=== PATIENT | male | born 1980 | race Caucasian/White ===

== ENCOUNTER → 2017-11-04 | Outpatient (CLI) | payer OTHER, SELFPAY ==
--- NOTE | 2017-11-04 17:15 | Diagnostic Imaging Report ---
PROCEDURE:TESTICULAR DOPPLER ULTRASOUND COMPARISON:None. INDICATIONS:RT. TESTICULAR PAIN TECHNIQUE:The scrotum was evaluated with gloria scale and color duplex Doppler sonography. FINDINGS: TESTES:Right: 4.7 x 2.7 x 3.3 cm. Left: 4.9 x 2.8 x 3.2 cm. Normal appearance and flow. Symmetric Color Doppler signal. Normal spectral Doppler waveforms. No masses. EPIDIDYMIS:Right epididymal head measures 1.1 x 0.7 x 0.7 cm . Left epididymal head measures 1.4 x 0.9 x 0.9 cm. Right epididymal head 0.5 x 0.5 x 0.5 cm and left epididymal head 0.5 x 0.3 x 0.5 cm cysts or spermatoceles. No masses. OTHER:No hydroceles, varicoceles, or inguinal hernias identified. CONCLUSION: No ultrasound findings to explain right testicular pain. Tiny epididymal head cysts or spermatoceles. Dictated by: Nimesh Gomez M.D. on 11/04/2017 at 17:16 Electronically approved by: Nimesh Gomez M.D. on 11/04/2017 at 17:16
--- NOTE | 2017-11-04 17:16 | Diagnostic Imaging Report ---
PROCEDURE:TESTICULAR ULTRASOUND COMPARISON:None. INDICATIONS:RT. TESTICULAR PAIN TECHNIQUE:The scrotum was evaluated with gloria scale and color duplex Doppler sonography. FINDINGS: Please see same day testicular ultrasound for full report. CONCLUSION: Please see same day testicular ultrasound for full report. Dictated by: Nimesh Gomez M.D. on 11/04/2017 at 17:17 Electronically approved by: Nimesh Gomez M.D. on 11/04/2017 at 17:17
== END ==
LOC: US 15:23
PROVIDERS: ATTEND Family Medicine
DX: N50.811 Right testicular pain (principal)
CPT/HCPCS: 76870; 93976

== ENCOUNTER 2021-10-16 14:29 | Inpatient (IN) | payer OTHER ==
[~2021-10-16] VITALS: Ht 180.3 cm; Wt 131.5 kg
[2021-10-16 15:12] LABS: BASOPHILS % 0.3 % (0.0-1.0); EOSINOPHILS % 0.1 % (0.0-6.0); HEMATOCRIT 48.7 % (38.2-49.6); HEMOGLOBIN 16.5 g/dL (14.0-18.0); LYMPHOCYTES # (AUTO) 1.6 (1.0-3.2); LYMPHOCYTES % 10.7 % (18.0-39.1); MEAN CORPUSCULAR HEMOGLOBIN 29.7 pg (28-32); MEAN CORPUSCULAR HGB CONC 33.9 g/dL (31-35); MEAN CORPUSCULAR VOLUME 87.6 fL (81-99); MONOCYTES # (AUTO) 1.1 (0.2-0.8); MONOCYTES % 7.4 % (4.4-11.3); NEUTROPHILS # (AUTO) 11.7 (2.1-6.9); PLATELET COUNT 205 x10e3/uL (140-360); RED BLOOD COUNT 5.56 x10e6/uL (4.3-5.7); RED CELL DISTRIBUTION WIDTH 13.1 % (11.7-14.4)
[2021-10-16 15:26] LABS: ALBUMIN 4.1 g/dL (3.5-5.0); ALBUMIN/GLOBULIN RATIO 1.2 (0.8-2.0); CREATININE, SERUM 1.23 mg/dL (0.72-1.25)
[2021-10-16] MEDS: ONDANSETRON HCL INJ 2MG/ML 2ML 2 MG/ML VIAL IV PRN (15:57)
[2021-10-16] MEDS: Morphine 4mg Syringe 4 MG/ML INJ IV PRN (15:57)
[2021-10-16 16:16] LABS: CLARITY,URINE SL CLOUDY (CLEAR); COLOR,URINE AMBER (YELLOW); KETONES,URINE NEGATIVE (NEGATIVE); LEUKOCYTE ESTERASE ,URINE NEGATIVE (NEGATIVE); NITRITE,URINE NEGATIVE (NEGATIVE); PROTEIN,URINE DIPSTICK NEGATIVE (NEGATIVE); URINE UROBILINOGEN 0.2 mg/dL (0.2 - 1)
[2021-10-16 16:22] LABS: BACTERIA,URINE RARE /HPF; EPITHELIAL CELLS,URINE FEW /LPF; MUCUS,URINE FEW (RARE)
[2021-10-16] MEDS ORDERED: ACETAMINOPHEN 325 MG TAB PO ONE (17:15)
[2021-10-16] MEDS ORDERED: FENTANYL CITRATE/PF 100MCG/2 ML INJ IV ONE (17:15)
[2021-10-16] MEDS ORDERED: SODIUM CHLORIDE 0.9% 1000ML 1,000 ML IV ONE (17:15)
[2021-10-16] MEDS ORDERED: ONDANSETRON HCL INJ 2MG/ML 2ML 2 MG/ML VIAL IV PRN (18:00)
[2021-10-16] MEDS ORDERED: Morphine 4mg Syringe 4 MG/ML INJ IV PRN (18:00)
[2021-10-16] MEDS: SODIUM CHLORIDE 0.9% 1000ML 1,000 ML IV SCH (18:00)
[2021-10-16] MEDS: Vancomycin IV 1 GM in SODIUM CHLORIDE 0.9% 250ML 250 ML IV SCH (18:15)
[2021-10-16 20:00] VITALS: BP 115/81
[2021-10-16 21:34] VITALS: BP 115/81
[2021-10-16 21:41] VITALS: BP 115/81
[2021-10-16] MEDS ORDERED: BUPROPION XL150 MG PO (21:51)
[2021-10-16] MEDS ORDERED: WELLBUTRIN XL150 MG PO (21:52)
[2021-10-16] MEDS ORDERED: ADDERALL 10 MG10 MG PO (21:54)
[2021-10-16] MEDS: HYDROCODONE/APAP 5MG-325MG TAB PO PRN (22:03)
[2021-10-17] VITALS (7 sets, daily range): BP systolic 102–135; BP diastolic 58–77
[2021-10-17] MEDS: ONDANSETRON HCL INJ 2MG/ML 2ML 2 MG/ML VIAL IV PRN ×4 (00:36→17:40)
[2021-10-17] MEDS: Morphine 4mg Syringe 4 MG/ML INJ IV PRN ×5 (00:36→17:40)
[2021-10-17] MEDS: SODIUM CHLORIDE 0.9% 1000ML 1,000 ML IV SCH ×4 (01:26→16:58)
[2021-10-17] MEDS: Vancomycin IV 1 GM in SODIUM CHLORIDE 0.9% 250ML 250 ML IV SCH ×2 (05:27→16:57)
[2021-10-17 06:12] LABS: BASOPHILS # (AUTO) 0.1 (0.0-0.1); BASOPHILS % 0.3 % (0.0-1.0); EOSINOPHILS % 0.1 % (0.0-6.0); HEMATOCRIT 44.9 % (38.2-49.6); HEMOGLOBIN 15.3 g/dL (14.0-18.0); LYMPHOCYTES # (AUTO) 1.7 (1.0-3.2); MEAN CORPUSCULAR HEMOGLOBIN 29.7 pg (28-32); MEAN CORPUSCULAR HGB CONC 34.1 g/dL (31-35); MEAN CORPUSCULAR VOLUME 87.2 fL (81-99); MONOCYTES # (AUTO) 1.6 (0.2-0.8); MONOCYTES % 10.6 % (4.4-11.3); NEUTROPHILS # (AUTO) 11.5 (2.1-6.9); NEUTROPHILS % 77.2 % (38.7-80.0); PLATELET COUNT 180 x10e3/uL (140-360); RED BLOOD COUNT 5.15 x10e6/uL (4.3-5.7)
[2021-10-17 06:33] LABS: ANION GAP 11.6 mmol/L (8-16); CALCIUM 7.9 mg/dL (8.4-10.2); CREATININE, SERUM 0.99 mg/dL (0.72-1.25); POTASSIUM 3.6 mmol/L (3.5-5.1)
[2021-10-17] MEDS: HYDROCODONE/APAP 5MG-325MG TAB PO PRN (08:58)
[2021-10-17] MEDS: FLUCONAZOLE 400MG/200ML BAG 200 ML IV SCH (13:47)
[2021-10-17] MEDS: BETAMETHASONE/CLOTRIMAZOLE CR 15 GM TUBE TOP SCH (16:57)
[2021-10-17] MEDS: D AMPHETAMINE PO SCH (16:57)
[2021-10-17] MEDS: HYDROMORPHONE 2MG/ML 2 MG/ML ML IV PRN (22:00)
[2021-10-18] VITALS (8 sets, daily range): BP systolic 103–126; BP diastolic 48–81
[2021-10-18] MEDS ORDERED: ACETAMINOPHEN 325 MG TAB PO PRN
[2021-10-18] MEDS: HYDROMORPHONE 2MG/ML 2 MG/ML ML IV PRN ×4 (01:54→21:19)
[2021-10-18] MEDS: SODIUM CHLORIDE 0.9% 1000ML 1,000 ML IV SCH ×3 (02:00→19:53)
[2021-10-18] MEDS: CEFTRIAXONE 2 GM in SODIUM CHLORIDE 0.9% 100 ML IV SCH (09:11)
[2021-10-18] MEDS: BUPROPION HCL 150 MG TABCR PO SCH (09:11)
[2021-10-18] MEDS: D AMPHETAMINE PO SCH ×2 (09:11→17:07)
[2021-10-18] MEDS: Morphine 4mg Syringe 4 MG/ML INJ IV PRN (09:12)
[2021-10-18] MEDS: ONDANSETRON HCL INJ 2MG/ML 2ML 2 MG/ML VIAL IV PRN ×4 (09:12→21:19)
[2021-10-18] MEDS: BETAMETHASONE/CLOTRIMAZOLE CR 15 GM TUBE TOP SCH ×2 (10:17→17:07)
[2021-10-18] MEDS: FLUCONAZOLE 400MG/200ML BAG 200 ML IV SCH (12:30)
[2021-10-18] MEDS: Vancomycin IV 1.5 GM in SODIUM CHLORIDE 0.9% 250ML 300 ML IV SCH (13:27)
[2021-10-19] VITALS (8 sets, daily range): BP systolic 115–135; BP diastolic 66–86
[2021-10-19] MEDS: HYDROMORPHONE 2MG/ML 2 MG/ML ML IV PRN ×3 (04:24→21:25)
[2021-10-19] MEDS: ONDANSETRON HCL INJ 2MG/ML 2ML 2 MG/ML VIAL IV PRN ×3 (04:25→21:25)
[2021-10-19] MEDS: SODIUM CHLORIDE 0.9% 1000ML 1,000 ML IV SCH ×3 (05:54→17:54)
[2021-10-19] MEDS: BUPROPION HCL 150 MG TABCR PO SCH (08:45)
[2021-10-19] MEDS: CEFTRIAXONE 2 GM in SODIUM CHLORIDE 0.9% 100 ML IV SCH (08:45)
[2021-10-19] MEDS: BETAMETHASONE/CLOTRIMAZOLE CR 15 GM TUBE TOP SCH ×2 (08:46→16:22)
[2021-10-19] MEDS: D AMPHETAMINE PO SCH ×2 (08:49→16:22)
[2021-10-19] MEDS: Vancomycin IV 1.5 GM in SODIUM CHLORIDE 0.9% 250ML 300 ML IV SCH ×3 (12:26)
[2021-10-19] MEDS: FLUCONAZOLE 400MG/200ML BAG 200 ML IV SCH (13:06)
[2021-10-20 00:13] VITALS: BP 128/83
[2021-10-20] MEDS: Vancomycin IV 1.5 GM in SODIUM CHLORIDE 0.9% 250ML 300 ML IV SCH (00:45)
[2021-10-20] MEDS: ONDANSETRON HCL INJ 2MG/ML 2ML 2 MG/ML VIAL IV PRN (02:05)
[2021-10-20] MEDS: HYDROMORPHONE 2MG/ML 2 MG/ML ML IV PRN (02:05)
[2021-10-20] MEDS: SODIUM CHLORIDE 0.9% 1000ML 1,000 ML IV SCH ×2 (04:30→09:22)
[2021-10-20 04:59] LABS: BASOPHILS % 0.3 % (0.0-1.0); EOSINOPHILS % 0.6 % (0.0-6.0); HEMATOCRIT 42.4 % (38.2-49.6); HEMOGLOBIN 14.2 g/dL (14.0-18.0); LYMPHOCYTES # (AUTO) 1.7 (1.0-3.2); LYMPHOCYTES % 23.1 % (18.0-39.1); MEAN CORPUSCULAR HEMOGLOBIN 29.6 pg (28-32); MEAN CORPUSCULAR HGB CONC 33.5 g/dL (31-35); MEAN CORPUSCULAR VOLUME 88.3 fL (81-99); MONOCYTES # (AUTO) 0.5 (0.2-0.8); MONOCYTES % 7.3 % (4.4-11.3); NEUTROPHILS # (AUTO) 4.9 (2.1-6.9); NEUTROPHILS % 68.4 % (38.7-80.0); PLATELET COUNT 211 x10e3/uL (140-360); RED CELL DISTRIBUTION WIDTH 12.7 % (11.7-14.4)
[2021-10-20 05:24] VITALS: BP 113/82
[2021-10-20 05:29] LABS: ANION GAP 12.1 mmol/L (8-16); CALCIUM 8.1 mg/dL (8.4-10.2); CREATININE, SERUM 0.76 mg/dL (0.72-1.25); POTASSIUM 4.1 mmol/L (3.5-5.1)
[2021-10-20 07:24] VITALS: BP 113/78
[2021-10-20 08:03] VITALS: BP 113/78
[2021-10-20] MEDS: CEFTRIAXONE 2 GM in SODIUM CHLORIDE 0.9% 100 ML IV SCH (09:21)
[2021-10-20] MEDS: BUPROPION HCL 150 MG TABCR PO SCH (09:22)
[2021-10-20] MEDS: D AMPHETAMINE PO SCH (09:22)
[2021-10-20] MEDS: BETAMETHASONE/CLOTRIMAZOLE CR 15 GM TUBE TOP SCH (09:22)
[2021-10-20 11:27] VITALS: BP 130/85
[2021-10-20] MEDS ORDERED: CIPRO500 MG PO (11:42)
[2021-10-20] MEDS ORDERED: DOXYCYCLINE MO100 M1 PO (11:46)
[2021-10-20] MEDS ORDERED: LOTRISONE (11:47)
[2021-10-20] MEDS ORDERED: DIFLUCAN200 MG PO (11:48)
[2021-10-20] MEDS ORDERED: FLUCONAZOLE 100 MG TAB PO SCH (13:00)
== END 2021-10-20 13:04 | disposition home or self-care (01) | DRG 872 ==
LOC: ER 14:41 → ERHOLD 17:56 → MED/SURG2 20:00
DX: A41.9 Sepsis, unspecified organism (principal); L03.315 Cellulitis of perineum; Z68.41 Body mass index [BMI] 40.0-44.9, adult; N17.9 Acute kidney failure, unspecified; K42.9 Umbilical hernia without obstruction or gangrene; F90.9 Attention-deficit hyperactivity disorder, unspecified type; R65.20 Severe sepsis without septic shock; B35.6 Tinea cruris; N49.2 Inflammatory disorders of scrotum; I86.1 Scrotal varices; E66.9 Obesity, unspecified; Z20.822 Contact with and (suspected) exposure to COVID-19
CPT/HCPCS: 36415; 74177; 76870; 80048; 80053; 80202; 81001; 83605; 85025; 87040; 87071; 87086; 87205; 93976; 94799; 96361; 99284; J0696; J1450; J2270; J2405; J3010; J3370; J7030; J7050; U0002